=== PATIENT | male | born 1945 | race Caucasian/White ===

== ENCOUNTER → 2019-04-17 | Outpatient (CLI) | payer OTHER, SELFPAY ==
--- NOTE | 2019-04-17 08:38 | ECHOCS_ITS ---
Reason For Study: CAD/ASHD Procedure This was a 2D Doppler, Color Flow transthoracic echocardiogram. The study was technically difficult. Contrast injection was performed. Exam performed in department. Left Ventricle Normal size and thickness. The estimated ejection fraction is 65 %. Stage 1 diastolic dysfunction. No regional wall motion abnormalities noted. Right Ventricle Mildly dilated right ventricle. Normal systolic function. Atria Normal left atrium. Normal right atrium. Normal atrial septum. Bubble contrast study negative for right to left interatrial shunt. Mitral Valve The mitral valve is structurally normal. No prolapse or stenosis seen. Trivial mitral valve insufficiency. Tricuspid Valve Normal tricuspid valve. Unable to estimate RV systolic pressure due to insufficient tricuspid regurgitant envelope. Aortic Valve Trisinus/trileaflet aortic valve. Pulmonic Valve Normal pulmonic valve. Trivial pulmonic valve insufficiency. Great Vessels Normal aortic root. Normal arch. Normal inferior vena cava. Inferior vena cava collapse with sniff. Pericardium/Pleural No pericardial effusion. Medication 22 gauge I.V. with prn adaptor inserted into right arm. Diluted definity 3.2ml given slow IV push to enhance endocardial definition. Performed a rapid injection of agitated mix of 9 cc saline and 1cc air to assess for atrial septal defect. MMode/2D Measurements & Calculations LVIDd: 4.3 cm IVSd: 1.1 cm Ao root diam: 3.5 cm LVIDs: 2.5 cm LVPWd: 0.77 cm LA dimension: 3.3 cm RVDd: 3.7 cm FS: 41.7 % LAV(MOD-bp): 48.8 ml LA A4 area: 16.8 cm2 RA A4 area: 14.7 cm2 LAV(MOD-bp) Indexed: 23.4 ml/m2 LAV(MOD-sp2): 54.8 ml LAV(MOD-sp4): 42.6 ml Time Measurements MV dec time: 0.27 sec Doppler Measurements & Calculations MV E max rashid: 60.7 cm/sec Lat Peak E' Rashid: 8.7 cm/sec Med Peak E' Rashid: 6.8 cm/sec MV A max rashid: 89.4 cm/sec E/E' lat: 7.0 E/E' med: 8.9 MV E/A: 0.68 MV V2 max: 88.0 cm/sec MV P1/2t max rashid: 59.1 cm/sec Ao V2 max: 102.9 cm/sec MV max P.1 mmHg MV P1/2t: 107.8 msec Ao max P.2 mmHg MV V2 mean: 49.4 cm/sec MV dec slope: 160.5 cm/sec2 Ao V2 mean: 68.1 cm/sec MV mean P.1 mmHg Ao mean P.1 mmHg MV V2 VTI: 22.1 cm MVA(P1/2t): 2.0 cm2 Ao V2 VTI: 24.4 cm LV V1 max: 98.7 cm/sec PA V2 max: 60.8 cm/sec PI end-d rashid: 96.4 cm/sec LV V1 max P.9 mmHg LV V1 mean P.0 mmHg LV V1 mean: 65.8 cm/sec LV V1 VTI: 22.8 cm Interpretation Summary The estimated ejection fraction is 65 %. Stage 1 diastolic dysfunction. Mildly dilated right ventricle. Trivial mitral valve insufficiency. Unable to estimate RV systolic pressure due to insufficient tricuspid regurgitant envelope. Bubble contrast study negative for right to left interatrial shunt. The study was technically difficult. Contrast injection was performed. There is no comparison study available. Ordering Physician: Eric Peter Referring Physician: Eric Peter Performed By: Navjot Castano RCS
== END | disposition home or self-care (01) ==
PROVIDERS: Referring Provider Orthopaedic Surgery; Visit Provider Orthopaedic Surgery
DX: I25.10 Atherosclerotic heart disease of native coronary artery without angina pectoris (principal); I10 Essential (primary) hypertension
CPT/HCPCS: 93306; Q9957; A4216; C8929